=== PATIENT | female | born 1990 | race Caucasian/White ===

== ENCOUNTER 2017-02-16 09:29 | Emergency (ER) | payer OTHER ==
[2017-02-16 09:34] VITALS: BP 113/67; PULSE 86; TEMP 97.7; BMI 30.2
--- NOTE | 2017-02-16 11:09 | PDOC ---
History of Present Illness - General Chief Complaint: Injury Stated Complaint: FALL/ BACK PAIN Time Seen by Provider: 02/16/17 11:01 History Source: Patient Exam Limitations: No Limitations - History of Present Illness Initial Comments: 02/16/17 11:07 26 yr female with c/o back pain after a fall 2 days ago. Pt states she slipped on the step and hit her back. no head trauma no LOC. Pt did not take anything of for pain. 02/16/17 11:09 Pain Location: reports: back Past History - Past Medical History Allergies/Adverse Reactions: Allergies Allergy/AdvReac Type Severity Reaction Status Date / Time No Known Allergies Allergy Verified 02/16/17 09:31 Home Medications: Ambulatory Orders Cyclobenzaprine HCl [Flexeril 10 mg] 5 mg PO TID PRN #15 tablet 02/16/17 Naproxen [Naprosyn -] 500 mg PO BID PRN #21 tablet 02/16/17 Other medical history: PT DENIES MEDICAL HX - Surgical History Abdominal Surgery: No - Reproductive History (#): 2 Para: 1 Cervical CA: No Dysfunctional Uterine Bleeding: No Ectopic : No Endometrial CA: No Polycystic Ovaries: No Therapeutic (s) & number: No Tubal Ligation: No - Immunization History Immunization Up to Date: Yes - Psycho/Social/Smoking Cessation Hx Anxiety: No Suicidal Ideation: No Smoking Status: No Smoking History: Never smoked Have you smoked in the past 12 months: No Number of Cigarettes Smoked Daily: 0 Cigars Per Day: 0 Hx Alcohol Use: No Drug/Substance Use Hx: No Substance Use Type: None *Physical Exam - Vital Signs Last Vital Signs Temp Pulse Resp BP Pulse Ox 97.7 F 86 16 113/67 97 02/16/17 09:31 02/16/17 09:31 02/16/17 09:31 02/16/17 09:31 02/16/17 09:31 - Physical Exam General Appearance: Yes: Nourished, Appropriately Dressed HEENT: positive: EOMI, GUADALUPE, Normal ENT Inspection, TMs Normal, Pharynx Normal Neck: positive: Supple. negative: Tender Respiratory/Chest: positive: Lungs Clear, Normal Breath Sounds. negative: Chest Tender Cardiovascular: positive: Regular Rhythm, Regular Rate Gastrointestinal/Abdominal: positive: Normal Bowel Sounds, Soft. negative: Tender Lymphatic: negative: Adenopathy Musculoskeletal: positive: Normal Inspection, Decreased Range of Motion, Muscle Spasm (left lumbar paraspinal soft tissue TTP ). negative: CVA Tenderness, CVA Tenderness (R), CVA Tenderness (L), Vertebral Tenderness Extremity: positive: Normal Capillary Refill, Normal Inspection, Normal Range of Motion. negative: Tender Integumentary: positive: Normal Color, Dry, Warm Neurologic: positive: Fully Oriented, Alert, Normal Mood/Affect, Normal Response , Motor Strength 5/5 Medical Decision Making - Medical Decision Making 02/16/17 13:42 cc: low back pain after fall 2 days ago no head trauma skin intact no bruising ttp left lower back area and lateral neck left side will check urine, urine motrin for pain *DC/Admit/Observation/Transfer Diagnosis at time of Disposition: Contusion Qualifiers: Encounter type: initial encounter Contusion area: lower back Qualified Code(s) : S30.0XXA - Contusion of lower back and pelvis, initial encounter - Discharge Dispostion Disposition: HOME Condition at time of disposition: Good - Prescriptions Prescriptions: Cyclobenzaprine HCl [Flexeril 10 mg] 5 mg PO TID PRN #15 tablet PRN Reason: Muscle Spasms Naproxen [Naprosyn -] 500 mg PO BID PRN #21 tablet PRN Reason: Back Pain - Patient Instructions Additional Instructions: take the prescribed muscle relaxants and pain medication as prescribed DO NOT DRIVE, OPERATE MACHINERY OR DRINK ALCOHOL CHILE TAKING FLEXERIL Return to ER for any worsening pain
[2017-02-16] MEDS ORDERED: IBUPROFEN 400 MG TABLET (FP) PO ONE ×2 (11:33→11:39)
[2017-02-16 12:53] LABS: URINE APPEARANCE CLEAR; URINE BILIRUBIN NEGATIVE (NEGATIVE); URINE BLOOD NEGATIVE (NEGATIVE); URINE COLOR YELLOW; URINE GLUCOSE (UA) NEGATIVE (NEGATIVE); URINE KETONE NEGATIVE (NEGATIVE); URINE NITRITE NEGATIVE (NEGATIVE); URINE PROTEIN NEGATIVE (NEGATIVE); URINE UROBILINOGEN NEGATIVE E.U./dl (0.2-1.0)
[2017-02-16 12:58] LABS: URINE LEUK ESTERASE TRACE (NEGATIVE)
[2017-02-16 13:24] LABS: URINE MUCUS RARE; URINE RBC 1 /hpf (0-3); URINE WBC 2 /hpf (3-5)
== END 2017-02-16 13:50 | disposition home or self-care (01) ==
LOC: JERFT 09:29
DX: S30.0XXA Contusion of lower back and pelvis, initial encounter (principal); W10.8XXA Fall (on) (from) other stairs and steps, initial encounter; Y93.89 Activity, other specified; Y92.89 Other specified places as the place of occurrence of the external cause
CPT/HCPCS: 72050-TC; 72070-TC; 81003; 81015; 84703; 99281-25

== ENCOUNTER 2017-12-16 17:21 | Emergency (ER) | payer OTHER ==
[2017-12-16] MEDS ORDERED: ACETAMINOPHEN 500 MG TABLET (FP) PO ONE (18:03)
--- NOTE | 2017-12-16 18:06 | PDOC ---
Rapid Medical Evaluation Time Seen by Provider: 12/16/17 18:02 Medical Evaluation: Allergies Allergy/AdvReac Type Severity Reaction Status Date / Time No Known Allergies Allergy Verified 02/16/17 09:31 12/16/17 18:02 I have performed a brief in-person evaluation of this patient. The patient presents with a chief complaint of: fever, sore throat, bodyaches Pertinent physical exam findings: HEENT: No erythema or exudates noted. No cervical lymphadenopathy. PULM: Lungs CTAB I have ordered the following: influenza, rapid strep, tylenol The patient will proceed to the ED for further evaluation. Discharge Disposition - Diagnosis Fever - Referrals - Patient Instructions - Post Discharge Activity
[2017-12-16 18:08] VITALS: BP 132/71; BMI 31.1
--- NOTE | 2017-12-16 19:32 | PDOC ---
History of Present Illness - General Chief Complaint: Cold Symptoms Stated Complaint: COUGHING Time Seen by Provider: 12/16/17 18:02 History Source: Patient Exam Limitations: No Limitations - History of Present Illness Initial Comments: 12/16/17 19:34 Patient here with complaints of acute onset last night of fevers, chills, headache and body aches, sore throat moist nonproductive cough earache and runny nose. Timing/Duration: reports: getting worse Severity: reports: moderate Associated Symptoms: reports: chest pain/soreness, cough, earache, facial pain, fever/chills, muscle aches Past History - Travel Traveled outside of the country in the last 30 days: No Close contact w/someone who was outside of country & ill: No - Past Medical History Allergies/Adverse Reactions: Allergies Allergy/AdvReac Type Severity Reaction Status Date / Time No Known Allergies Allergy Verified 12/16/17 18:08 Home Medications: Ambulatory Orders Ibuprofen 400 mg PO Q6H PRN #30 tablet 12/16/17 Oseltamivir Phosphate [Tamiflu -] 75 mg PO BID #10 capsule 12/16/17 CVA: No COPD: No - Surgical History Abdominal Surgery: No - Reproductive History (#): 2 Para: 1 Cervical CA: No Dysfunctional Uterine Bleeding: No Ectopic : No Endometrial CA: No Polycystic Ovaries: No Therapeutic (s) & number: No Tubal Ligation: No - Immunization History Immunization Up to Date: Yes - Suicide/Smoking/Psychosocial Hx Smoking Status: No Smoking History: Never smoked Have you smoked in the past 12 months: No Number of Cigarettes Smoked Daily: 0 Cigars Per Day: 0 Hx Alcohol Use: No Drug/Substance Use Hx: No Substance Use Type: None Review of Systems - Review of Systems Able to Perform ROS?: Yes Is the patient limited Luxembourgish proficient: Yes Constitutional: Yes: Symptoms Reported, See HPI, Fever, Malaise HEENTM: Yes: Symptoms Reported, Nose Congestion, Throat Swelling Respiratory: Yes: Symptoms reported, See HPI, Cough Musculoskeletal: Yes: Symptoms Reported, See HPI, Muscle Pain, Muscle Weakness Integumentary: No: Symptoms Reported All Other Systems: Reviewed and Negative *Physical Exam - Vital Signs Last Vital Signs Temp Pulse Resp BP Pulse Ox 102.8 F H 156 H 20 132/71 99 12/16/17 18:05 12/16/17 18:05 12/16/17 18:05 12/16/17 18:05 12/16/17 18:05 - Physical Exam General Appearance: Yes: Appropriately Dressed, Apparent Distress, Mild Distress HEENT: positive: GUADALUPE, Normal ENT Inspection, Rhinorrhea, Sinus Tenderness. negative: TMs Normal (unable to visualize TMs due to ceruminosis), Pharynx Normal (erythema) Neck: positive: Supple, Lymphadenopathy (R), Lymphadenopathy (L). negative: Tender Respiratory/Chest: positive: Lungs Clear, Normal Breath Sounds (but coarse inspiratory and expiratory breath sounds, no wheezing or retractions noted), Wheezing Gastrointestinal/Abdominal: positive: Normal Bowel Sounds, Soft. negative: Tender Musculoskeletal: positive: Normal Inspection Extremity: positive: Normal Capillary Refill, Normal Inspection, Normal Range of Motion Integumentary: positive: Normal Color, Dry, Warm, Pale Neurologic: positive: ip network architect II-XII NML intact, Fully Oriented, Alert, Normal Mood/ Affect, Normal Response, Motor Strength 04/03 ED Treatment Course - Medications Given in the ED: ED Medications Discontinued Medications Generic Name Dose Route Start Last Admin Trade Name Cricketq PRN Reason Stop Dose Admin Acetaminophen 1,000 mg 12/16/17 18:03 12/16/17 18:08 Tylenol - PO 12/16/17 18:04 1,000 mg ONCE ONE Administration Progress Note - Progress Note Progress Note: Upper respiratory infection, probable influenza. We'll treat with Tamiflu *DC/Admit/Observation/Transfer Diagnosis at time of Disposition: Influenzal acute upper respiratory infection - Discharge Dispostion Disposition: HOME Condition at time of disposition: Stable Admit: No - Referrals - Patient Instructions Printed Discharge Instructions: DI for Viral Upper Respiratory Infection -- Adult Additional Instructions: Rest, drink lots of fluids: Teas, water, soups, Pedialyte Saltwater gargles Steamy showers/seem to face break up mucus Old-fashioned treatments help! Avoid contact with others until fevers and cough resolved as this is very contagious Lots of handwashing and good hygiene Continue [id number] medications for symptomatic relief Tylenol or Motrin for fever and pain Take all of Tamiflu as directed: 1 tab every 12 hours for 5 days Followup with private physician in one to 2 days as needed or if worsening Return to emergency department for worsened symptoms, fevers, dehydration Influenza takes between 5 and 7 days for resolution To not participate in any activity, work, or school until fevers and cough are gone for at least one day - Post Discharge Activity
[2017-12-16 19:39] VITALS: PULSE 90; TEMP 99.5
--- NOTE | 2017-12-16 20:01 | PDOC ---
Patient Follow-up (Call Back) - Post ED Follow - Up Condition at time of discharge: Stable Disposition at time of original discharge: HOME Reason for Call Back: Abnwl. Microbiology (+ flu and group a beta hemolytic strep. Patient was discharged prior to results but was given Tamiflu. Contacted patient and made her aware of results. Prescription for amoxicillin, sent to pharmacy)
== END 2017-12-16 19:49 | disposition home or self-care (01) ==
LOC: JERFT 17:21
DX: J09.X2 Influenza due to identified novel influenza A virus with other respiratory manifestations (principal); J02.0 Streptococcal pharyngitis; B95.0 Streptococcus, group A, as the cause of diseases classified elsewhere
CPT/HCPCS: 87070; 87430; 87804; 99281-25

== ENCOUNTER 2018-08-02 11:17 | Emergency (ER) | payer OTHER ==
[2018-08-02 11:26] VITALS: BMI 30.2
--- NOTE | 2018-08-02 11:27 | PDOC ---
Rapid Medical Evaluation Chief Complaint: Pain Medical Evaluation: Allergies Allergy/AdvReac Type Severity Reaction Status Date / Time No Known Allergies Allergy Verified 08/02/18 11:22 Vital Signs Temp Pulse Resp BP Pulse Ox 99.0 F 100 H 18 115/69 100 08/02/18 11:22 08/02/18 11:22 08/02/18 11:22 08/02/18 11:22 08/02/18 11:22 08/02/18 11:27 Patient stating she has not felt the baby move for 2 days. Patient is currently 20 weeks followed by woman to woman. Patient denies abdominal pain, vaginal discharge or vaginal bleeding. Patient does state mild low back pain just as an aching sensation. Patient has no other complaints at this time. Patient will be sent to L&D for assessment Discharge Disposition - Referrals Referrals: Dragan Saavedra MD [Primary Care Provider] - - Patient Instructions - Post Discharge Activity
[2018-08-02 12:46] VITALS: BP 113/76; PULSE 91; TEMP 97.6
== END 2018-08-02 13:10 | disposition home or self-care (01) ==
LOC: JER 11:17
DX: O26.892 Other specified pregnancy related conditions, second trimester (principal); M54.5 Low back pain; O36.8130 Decreased fetal movements, third trimester, not applicable or unspecified; Z3A.20 20 weeks gestation of pregnancy
CPT/HCPCS: 99281-25

== ENCOUNTER 2018-12-14 09:35 | Inpatient (IN) | payer OTHER ==
[2018-12-14] MEDS ORDERED: ELECTROLYTE-148 SOLN 1,000 ML IV SCH (12:30)
[2018-12-14] MEDS ORDERED: ELECTROLYTE-148 SOLN 500 ML IV ONE (12:30)
[2018-12-14] MEDS ORDERED: CITRIC ACID/SODIUM CITRATE 30 ML UNIT-DOSE CUP PO ONE (12:30)
--- NOTE | 2018-12-14 12:30 | HP ---
Past Medical History - Admission History of Present Illness: 28 y/o with h/o c section X 2 here with c/o leaking fluid and pauly. Pt has c section scheduled for 12/17. +FM, uncomplicated. Has h/o fatty liver, AST/ALT mildly elevated on last check, no signs/sx HELLP or Pre Eclampsia. History Source: Patient, Medical Record Limitations to Obtaining History: No Limitations - Past Medical History Cardiovascular: No: HTN Pulmonary: No: Asthma, COPD Gastrointestinal: Yes: Other (fatty liver). No: GERD ...: 3 ...Para: 2 ...Term: 2 ...: 0 ...Spon : 0 ...Induced : 0 ...LMP: 12/06/17 ...EDC by Sono: 12/23/18 Heme/Onc: No: Thrombocytopenia Infectious Disease: No: STD's Psych: No: Bipolar, Depression - Past Surgical History Past Surgical History: Yes: Hx Myomectomy: No Hx Transabdominal Cerclage: No - Smoking History Smoking history: Never smoked Have you smoked in the past 12 months: No Aproximately how many cigarettes per day: 0 - Alcohol/Substance Use Hx Alcohol Use: No History of Substance Use: reports: None - Social History Usual Living Arrangement: Yes: With Spouse ADL: Independent History of Recent Travel: No Home Medications - Allergies Allergies/Adverse Reactions: Allergies Allergy/AdvReac Type Severity Reaction Status Date / Time contrast dye Allergy Severe Swelling Uncoded 12/14/18 10:50 - Home Medications Home Medications: Ambulatory Orders Vit 108/Iron/Folic AC [ One Tablet] 1 each PO DAILY 12/14/18 Review of Systems - Review of Systems Constitutional: reports: No Symptoms Eyes: reports: No Symptoms HENT: reports: No Symptoms Neck: reports: No Symptoms Cardiovascular: reports: No Symptoms Respiratory: reports: No Symptoms Gastrointestinal: reports: No Symptoms Genitourinary: reports: No Symptoms Breasts: reports: No Symptoms Reported Musculoskeletal: reports: No Symptoms Integumentary: reports: No Symptoms Neurological: reports: No Symptoms Endocrine: reports: No Symptoms Hematology/Lymphatic: reports: No Symptoms Psychiatric: reports: No Symptoms Physical Exam - Maternity Vital Signs: Vital Signs Temperature 98.0 F 12/14/18 10:45 Pulse Rate 91 H 12/14/18 10:45 Respiratory Rate 18 12/14/18 10:45 Blood Pressure 113/73 12/14/18 10:45 O2 Sat by Pulse Oximetry (%) Constitutional: Yes: Well Nourished, No Distress, Calm Eyes: Yes: Conjunctiva Clear, EOM Intact HENT: Yes: Atraumatic, Normocephalic Neck: Yes: Supple, Trachea Midline Cardiovascular: Yes: Regular Rate and Rhythm Lungs: Clear to auscultation Breast(s): Yes: WNL - Abdominal Exam/OB Fundal Height: 39 Number of Fetuses: Single Presentation: Vertex Contractions: Yes Regularity: Irregular Intensity: Mild/Mod Category: I Accelerations: Uniform Decelerations: None - Vaginal Exam/OB Dilatation (cm): 4 Effacement (%): 70 Amniotic Membrane Status: Intact Presentation: Vertex/Position Station: -2 - Physical Exam Psychiatric: Yes: Alert, Oriented Hemorrhage Risk Assessment - Risk Factors Medium Risk Factors: Yes: Prior , uterine surgery,or multiple laparotomies Risk Score: 1 Risk Level: Medium Risk Problem List - Problems (1) Fatty liver Code(s): K76.0 - FATTY (CHANGE OF) LIVER, NOT ELSEWHERE CLASSIFIED (2) Fatty liver disease, nonalcoholic Code(s): K76.0 - FATTY (CHANGE OF) LIVER, NOT ELSEWHERE CLASSIFIED (3) Active labor at term Code(s): FYD6963 - (4) History of delivery Code(s): Z98.891 - HISTORY OF UTERINE SCAR FROM PREVIOUS SURGERY Assessment/Plan Pt with contractions, 4cm dilated, in early labor with h/o prior c section X 2 plan for repeat c section due to h/o fatty liver, need coags before can start c section, awaiting labs now NPO gonzalez catheter placed anesthesia/nursings/nursery aware
[2018-12-14 12:34] LABS: BASO % 0.4 % (0-2.0); EOS % 1.1 % (0-4.5); HEMATOCRIT 32.2 % (32.4-45.2); HEMOGLOBIN 11.1 GM/dL (10.7-15.3); LYMPH % 21.6 % (8-40); MCH 31.8 pg (25.7-33.7); MCHC 34.3 g/dl (32.0-36.0); MEAN CELL VOLUME 92.8 fl (80-96); MEAN PLT VOLUME 8.6 fl (7.5-11.1); MONO % 7.8 % (3.8-10.2); NEUT % 69.1 % (42.8-82.8); PLATELET COUNT 383 K/MM3 (134-434); RBC 3.47 M/mm3 (3.60-5.2); RDW 14.1 % (11.6-15.6); WHITE BLOOD COUNT 9.1 K/mm3 (4.0-10.0)
[2018-12-14 12:40] LABS: INR 0.96 (0.83-1.09); PROTHROMBIN TIME (PATIENT) 11.3 SEC (9.7-13.0)
[2018-12-14 12:58] LABS: ANION GAP 9 MMOL/L (8-16); BLOOD UREA NITROGEN 11 mg/dL (7-18); CALCIUM 8.5 mg/dL (8.5-10.1); CHLORIDE 107 mmol/L (98-107); CO2 23 mmol/L (21-32); CREATININE 0.6 mg/dL (0.55-1.3); GLUCOSE,RANDOM 67 mg/dL (74-106); POTASSIUM 4.3 mmol/L (3.5-5.1); SODIUM 138 mmol/L (136-145)
[2018-12-14 13:12] VITALS: BMI 33.8
[2018-12-14] MEDS ORDERED: OXYTOCIN 20 UNITS in 0.9% NS 40 UNIT/2,000 ML INFUS.BAG IV ONE (15:24)
[2018-12-14] MEDS ORDERED: morphine SULFATE/Preservative Free 0.5 MG/ML (1cc Syringe) ONE (16:28)
[2018-12-14] MEDS ORDERED: METHYLERGONOVINE MALEATE 0.2 MG/1 ML AMP IM PRN (16:38)
[2018-12-14] MEDS ORDERED: IBUPROFEN 600 MG TABLET (FP) PO PRN (16:38)
[2018-12-14] MEDS ORDERED: ONDANSETRON 4 MG/2 ML VIAL IVPUSH PRN (16:44)
[2018-12-14] MEDS ORDERED: OXYTOCIN 20 UNITS in 0.9% NS 20 UNIT/1,000 ML INFUS.BAG IV ONE (18:43)
[2018-12-14] MEDS: OXYTOCIN 20 UNITS in 0.9% NS 20 UNIT/1,000 ML INFUS.BAG IV SCH (18:45)
[2018-12-14] MEDS ORDERED: TUBERCULIN PPD 5 TU/0.1ML SYRINGE (IN PATIENT USE ONLY) ID ONE (19:45)
--- NOTE | 2018-12-14 20:10 | OP ---
Operative Note - Note: Operative Date: 12/14/18 Pre-Operative Diagnosis: prior section x 2, in labor Operation: repeat low transverse section Findings: normal b/l tubes and ovaries live male Post-Operative Diagnosis: Same as Pre-op Surgeon: Matilde Scruggs Automobile Mechanic Helper: Jignesh Page Anesthesiologist/SERVICE STATION OPERATOR: Renzo Niño Anesthesia: Spinal Specimens Removed: placenta Estimated Blood Loss (mls): 600 Operative Report Dictated: Yes
[2018-12-14] MEDS: IBUPROFEN 800 MG/8 ML IJ IVPB PRN (20:37)
[2018-12-15] MEDS: OXYTOCIN 20 UNITS in 0.9% NS 20 UNIT/1,000 ML INFUS.BAG IV SCH (04:00)
[2018-12-15] MEDS: IBUPROFEN 800 MG/8 ML IJ IVPB PRN (04:55)
--- NOTE | 2018-12-15 05:55 | PN ---
Progress Note (SOAP) - Subjective Chief Complaint: Pt doing well - Current Medications Current Medications: Active Medications Acetaminophen (Tylenol -) 650 mg PO Q4H PRN PRN Reason: PAIN LEVEL 1-5 Bisacodyl (Dulcolax Suppository -) 10 mg RC PRN PRN PRN Reason: CONSTIPATION Diphenhydramine HCl (Benadryl Injection -) 25 mg IVPUSH Q4H PRN PRN Reason: Pruritis Oxytocin/Sodium Chloride (Normal Saline+20 Units Oxytocin -) 20 unit in 1,000 mls @ 125 mls/hr IV ASDIR ALETHA Last Admin: 12/15/18 04:00 Dose: 125 mls/hr Ibuprofen (Motrin -) 600 mg PO Q4H PRN PRN Reason: PAIN LEVEL 1-5 Ibuprofen (Caldolor Injection -) 600 mg IVPB Q8H PRN PRN Reason: FEVER Last Admin: 12/15/18 04:55 Dose: 600 mg Methylergonovine Maleate (Methergine Injection -) 0.2 mg IM Q4H PRN PRN Reason: Excessive Bleeding (L&D) Ondansetron HCl (Zofran Injection) 4 mg IVPUSH Q4H PRN PRN Reason: NAUSEA Oxycodone HCl (Roxicodone -) 5 mg PO Q4H PRN PRN Reason: PAIN LEVEL 4 - 6 Oxycodone HCl (Roxicodone -) 10 mg PO Q4H PRN PRN Reason: PAIN LEVEL 7 - 10 Multivit/Folic Acid/Iron ( Vitamins (Sjr) -) 1 tab PO DAILY [facility] Simethicone (Mylicon -) 80 mg PO Q4H PRN PRN Reason: GAS - Objective Vital Signs: Vital Signs Temperature 99.3 F 12/15/18 02:00 Pulse Rate 100 H 12/15/18 02:00 Respiratory Rate 18 12/15/18 05:50 Blood Pressure 106/52 L 12/15/18 02:00 O2 Sat by Pulse Oximetry (%) 100 12/14/18 19:00 Constitutional: Yes: Well Nourished, No Distress Cardiovascular: Yes: WNL Respiratory: Yes: WNL, Regular, CTA Bilaterally ....Post : Yes: Uterus firm, Uterus non-tender Breast(s): Yes: WNL Musculoskeletal: Yes: WNL Extremities: Yes: WNL Wound/Incision: Yes: Dressing Dry and Intact Neurological: Yes: WNL, Alert, Oriented Labs Lab Results: CBC, BMP 12/14/18 12:00 12/14/18 12:00 Assessment/Plan SP repeat CS POD1 Anemia Plab Continue present management
[2018-12-15 06:02] LABS: BASO % 0.4 % (0-2.0); EOS % 0.4 % (0-4.5); HEMATOCRIT 29.2 % (32.4-45.2); LYMPH % 15.7 % (8-40); MCH 32.3 pg (25.7-33.7); MCHC 34.4 g/dl (32.0-36.0); MEAN CELL VOLUME 93.8 fl (80-96); MEAN PLT VOLUME 7.8 fl (7.5-11.1); NEUT % 75.5 % (42.8-82.8); PLATELET COUNT 331 K/MM3 (134-434); RBC 3.11 M/mm3 (3.60-5.2); RDW 14.1 % (11.6-15.6); WHITE BLOOD COUNT 9.6 K/mm3 (4.0-10.0)
[2018-12-15] MEDS: PRENATAL VITAMINS W/ FOLIC ACID TABLET (FP) PO SCH (09:28)
--- NOTE | 2018-12-15 10:05 | PN ---
Progress Note (short form) - Note Progress Note: Post op day#1.S/P C Section under spinal anesthesia with duramorph uneventful.Patient stable and c/o some pain for which she is on medication.No any anesthesia related problem.Patient DC from the anesthesia care.
[2018-12-15] MEDS: oxyCODONE HCL 5 MG TABLET PO PRN ×4 (10:20→22:49)
[2018-12-15] MEDS: ACETAMINOPHEN 325 MG TABLET (FP) PO PRN ×3 (10:22→19:01)
[2018-12-15] MEDS: SIMETHICONE 80 MG TAB.CHEW (FP) PO PRN ×4 (10:22→22:49)
[2018-12-15] MEDS ORDERED: BISACODYL 10 MG SUPP.RECT RC PRN (16:38)
[2018-12-15] MEDS: IBUPROFEN 600 MG TABLET (FP) PO PRN (22:50)
--- NOTE | 2018-12-16 06:28 | PN ---
Progress Note (SOAP) - Subjective Chief Complaint: Pt doing well - Current Medications Current Medications: Active Medications Acetaminophen (Tylenol -) 650 mg PO Q4H PRN PRN Reason: PAIN LEVEL 1-5 Last Admin: 12/15/18 19:01 Dose: 650 mg Bisacodyl (Dulcolax Suppository -) 10 mg RC PRN PRN PRN Reason: CONSTIPATION Diphenhydramine HCl (Benadryl Injection -) 25 mg IVPUSH Q4H PRN PRN Reason: Pruritis Oxytocin/Sodium Chloride (Normal Saline+20 Units Oxytocin -) 20 unit in 1,000 mls @ 125 mls/hr IV ASDIR ALETHA Last Admin: 12/15/18 04:00 Dose: 125 mls/hr Ibuprofen (Motrin -) 600 mg PO Q4H PRN PRN Reason: PAIN LEVEL 1-5 Last Admin: 12/15/18 22:50 Dose: 600 mg Ibuprofen (Caldolor Injection -) 600 mg IVPB Q8H PRN PRN Reason: FEVER Last Admin: 12/15/18 04:55 Dose: 600 mg Methylergonovine Maleate (Methergine Injection -) 0.2 mg IM Q4H PRN PRN Reason: Excessive Bleeding (L&D) Ondansetron HCl (Zofran Injection) 4 mg IVPUSH Q4H PRN PRN Reason: NAUSEA Oxycodone HCl (Roxicodone -) 5 mg PO Q4H PRN PRN Reason: PAIN LEVEL 4 - 6 Last Admin: 12/15/18 22:49 Dose: 5 mg Oxycodone HCl (Roxicodone -) 10 mg PO Q4H PRN PRN Reason: PAIN LEVEL 7 - 10 Last Admin: 12/15/18 19:00 Dose: 10 mg Multivit/Folic Acid/Iron ( Vitamins (Sjr) -) 1 tab PO DAILY ALETHA Last Admin: 12/15/18 09:28 Dose: Not Given Simethicone (Mylicon -) 80 mg PO Q4H PRN PRN Reason: GAS Last Admin: 12/15/18 22:49 Dose: 80 mg - Objective Vital Signs: Vital Signs Temperature 99.3 F 12/15/18 22:00 Pulse Rate 110 H 12/15/18 22:00 Respiratory Rate 18 12/15/18 22:00 Blood Pressure 107/68 12/15/18 22:00 O2 Sat by Pulse Oximetry (%) 100 12/14/18 19:00 Constitutional: Yes: Well Nourished, No Distress Neck: Yes: WNL Cardiovascular: Yes: WNL Gastrointestinal: Yes: WNL, Soft ....Post : Yes: Uterus firm, Uterus non-tender Breast(s): Yes: WNL Musculoskeletal: Yes: WNL Extremities: Yes: WNL Wound/Incision: Yes: Dressing Dry and Intact Neurological: Yes: WNL, Alert, Oriented Labs Lab Results: CBC, BMP 12/15/18 05:50 12/14/18 12:00 Assessment/Plan SP repeat CS POD2 Anemia Plab Continue present management
[2018-12-16] MEDS: oxyCODONE HCL 5 MG TABLET PO PRN ×4 (07:59→21:13)
[2018-12-16] MEDS: ACETAMINOPHEN 325 MG TABLET (FP) PO PRN ×4 (08:00→21:14)
[2018-12-16] MEDS: SIMETHICONE 80 MG TAB.CHEW (FP) PO PRN ×3 (08:01→21:13)
[2018-12-16] MEDS: IBUPROFEN 600 MG TABLET (FP) PO PRN (08:01)
--- NOTE | 2018-12-16 09:27 | OP ---
DATE OF OPERATION: 12/14/2018 PREOPERATIVE DIAGNOSIS: Prior section x2, at 38 weeks in labor. POSTOPERATIVE DIAGNOSIS: Prior section x2, at 38 weeks in labor. PROCEDURE: Repeat low transverse section. SURGEON: Matilde Scruggs DO SCRATCHER: NATALIO Burk ANESTHESIA: Spinal by Renzo Niño MD. ESTIMATED BLOOD LOSS: 600 mL COMPLICATIONS: None. SPECIMENS REMOVED: Placenta. FINDINGS: Normal bilateral tubes and ovaries. COUNT: Sponge, needle, and instrument count correct. DISPOSITION: Stable to PACU. BRIEF HISTORY AND PROCEDURE: Patient is a 28-year-old female who arrived to Labor and Delivery with complaints of painful contractions, was found to be 4 cm dilated upon admission, when prior in the office she was measuring 2-3 cm, and she was having regular contractions. At this point, the patient was diagnosed with labor, and due to her 2 prior deliveries was consented on a repeat section. The patient was admitted to the hospital, and after meeting with Anesthesia, was then taken back to the operating room and given spinal anesthesia, placed in dorsal supine position. A Agarwal catheter was placed under sterile conditions, and a hard timeout was performed. She was prepped and draped in the usual sterile fashion. A Pfannenstiel skin incision was created in the skin with a scalpel and carried to the underlying layer of rectus fascia sharply. The fascia was incised on either side of midline, and the fascial incision was carried in a superolateral direction sharply. The fascia was tented upwards and dissected off the underlying layer of rectus muscle sharply. The rectus muscle was retracted laterally, and the peritoneum was entered sharply to allow for adequate room for delivery and dissected down. A bladder blade was inserted. A transverse incision was created in the lower uterine segment with a knife, and the incision was extended in a superolateral direction bluntly. The infant was then delivered from the left occiput anterior position without difficulty. Bilateral shoulders and the remainder of the delivered with ease. The cord was clamped twice and cut in between. The infant was taken over to the warmer to be assessed by the soup person who was present for the entire delivery. A 3-vessel cord was noted. The placenta was then manually extracted and sent to Pathology for evaluation. The uterus was exteriorized from the abdomen, inspected, and cleared of all amniotic membrane and placental tissue with a dry lap sponge. The hysterotomy was reapproximated using 1 Vicryl in a running locked fashion and a second layer using 0 Biosyn in a running fashion. Excellent hemostasis was achieved. Bilateral tubes and ovaries were noted to be normal. The posterior cul-de-sac was suctioned. The uterus was placed back in the abdomen. Bilateral gutters were inspected and cleared of all blood clot and debris. Hysterotomy was again examined and noted to be hemostatic. The peritoneum was reapproximated using 2-0 chromic in a running fashion. The musculature was reapproximated interrupted sutures using 2-0 chromic and 0 Biosyn. The fascia was reapproximated using 1 Vicryl in a running fashion. The subcutaneous tissue was irrigated and reapproximated using 1 Vicryl in a running fashion, and the skin was reapproximated in subcuticular fashion using 1 Vicryl suture. The patient tolerated the procedure well, was recovering in stable condition in the PACU after the procedure. MATILDE SCRUGGS DO /[id number]
[2018-12-16] MEDS: PRENATAL VITAMINS W/ FOLIC ACID TABLET (FP) PO SCH (09:39)
[2018-12-17] MEDS: ACETAMINOPHEN 325 MG TABLET (FP) PO PRN ×5 (00:59→23:01)
[2018-12-17] MEDS: oxyCODONE HCL 5 MG TABLET PO PRN ×5 (01:00→23:01)
[2018-12-17] MEDS: SIMETHICONE 80 MG TAB.CHEW (FP) PO PRN ×4 (01:01→18:38)
[2018-12-17 07:50] LABS: BASO % 0.6 % (0-2.0); EOS % 3.1 % (0-4.5); HEMOGLOBIN 10.9 GM/dL (10.7-15.3); LYMPH % 20.2 % (8-40); MCH 31.9 pg (25.7-33.7); MCHC 34.2 g/dl (32.0-36.0); MEAN CELL VOLUME 93.4 fl (80-96); MEAN PLT VOLUME 7.7 fl (7.5-11.1); MONO % 5.6 % (3.8-10.2); NEUT % 70.5 % (42.8-82.8); PLATELET COUNT 366 K/MM3 (134-434); RBC 3.43 M/mm3 (3.60-5.2); WHITE BLOOD COUNT 7.9 K/mm3 (4.0-10.0)
[2018-12-17] MEDS: PRENATAL VITAMINS W/ FOLIC ACID TABLET (FP) PO SCH (10:00)
[2018-12-17] MEDS: OXYTOCIN 20 UNITS in 0.9% NS 20 UNIT/1,000 ML INFUS.BAG IV SCH (23:21)
[2018-12-18] MEDS: oxyCODONE HCL 5 MG TABLET PO PRN (08:25)
[2018-12-18] MEDS: SIMETHICONE 80 MG TAB.CHEW (FP) PO PRN (08:25)
[2018-12-18] MEDS: ACETAMINOPHEN 325 MG TABLET (FP) PO PRN (08:26)
[2018-12-18] MEDS: PRENATAL VITAMINS W/ FOLIC ACID TABLET (FP) PO SCH (10:04)
[2018-12-18 10:33] VITALS: BP 110/72; PULSE 88; TEMP 99.4
--- NOTE | 2018-12-18 10:52 | DS ---
Physical Exam-ROD HANGER Vital Signs: Vital Signs Temperature 99.4 F 12/18/18 10:00 Pulse Rate 88 12/18/18 10:00 Respiratory Rate 20 12/18/18 10:00 Blood Pressure 110/72 12/18/18 10:00 O2 Sat by Pulse Oximetry (%) 100 12/14/18 19:00 Labs: CBC, BMP 12/17/18 06:30 12/14/18 12:00 Delivery - Delivery Type of Anesthesia: Spinal Episiotomy/Laceration: None EBL (cc): 600 Delivery, Single - Stages of Labor Date 1st Stage Initiatied: 12/14/18 Date of Delivery: 12/14/18 Time of Delivery: 16:49 Time Placenta Delivered: 16:50 - Condition of Store Receiver/Biomedical Scientist Present: Yes Name: Kash Sethi Gender: Male Weight: 7 lb 7 oz Position: Left, OA Total Hours ROM (Hrs/Mins): 0/2 - 1 Minute Total Score: 8 5 Minutes Total Score: 9 - [place] Feeding Plan Initial Plan: Elected not to breastfeed exclusively throughout hospitalization Discharge Summary Reason For Visit: Current Active Problems Active labor at term (Acute) Fatty liver (Acute) Fatty liver disease, nonalcoholic (Acute) History of delivery (Acute) - Instructions Referrals: Matilde Scruggs DO [Staff Physician] - - Home Medications Comprehensive Discharge Medication List: Ambulatory Orders Vit 108/Iron/Folic AC [ One Tablet] 1 each PO DAILY 12/14/18
--- NOTE | 2018-12-24 20:35 | PATH ---
Surgical Pathology Report Patient Name: PARAG MAN Med. Rec. #: [id number] /Age/Gender: 1990 (Age: 28) / F Account: [id number] Location: [facility] OBS/REAL ESTATE REPRESENTATIVE Taken: 12/14/2018 Received: 12/15/2018 Reported: 12/24/2018 Physicians: Matilde Scruggs M.D. Specimen(s) Received PLACENTA Clinical History , 38.5 weeks, previous in labor Final Diagnosis PLACENTA, SECTION: 457 G THIRD TRIMESTER PLACENTA WITH TRIVASCULAR UMBILICAL CORD AND UNREMARKABLE PLACENTAL MEMBRANES. Electronically Signed Elyse Saldaña M.D. Gross Description The specimen is received fresh labeled placenta and is a 457 gram, 13.0 x 12.0 x 4.3 cm. placenta with attached membranes and umbilical cord. The attached membranes are kan, translucent with focal opacities and insert marginally. The umbilical cord measures 24 cm. in length and averages 1.5 cm. in diameter. The cord inserts eccentrically, 1.5 cm. to the nearest margin. No true knots or strictures are identified. Cut surface of the umbilical cord reveals 3 vessels. The surface is conner-blue with minimal fibrin deposition and appropriate caliber vessels. The maternal surface is red-brown with focal defects. Sectioning reveals red-brown, spongy parenchyma. No lesions are identified. Television Producer sections are submitted in three cassettes as follows: 1- membrane rolls and umbilical cord; 2-3- full thickness sections of placenta. 12/23/2018 saudi12/23/2018
== END 2018-12-18 11:40 | disposition home or self-care (01) | DRG 540 ==
LOC: JDEL 09:35 → JLDR 11:30 → J3W 19:55
PROVIDERS: ADMIT Obstetrics & Gynecology; ATTEND Obstetrics & Gynecology
PROC: 10D00Z1 Extraction of Products of Conception, Low, Open Approach (ICD-10-PCS; principal; 2018-12-14)
DX: O26.613 Liver and biliary tract disorders in pregnancy, third trimester (principal); O34.211 Maternal care for low transverse scar from previous cesarean delivery; K76.0 Fatty (change of) liver, not elsewhere classified; O99.013 Anemia complicating pregnancy, third trimester; D64.9 Anemia, unspecified; Z3A.38 38 weeks gestation of pregnancy; Z37.0 Single live birth
CPT/HCPCS: 36415; 80048; 85025; 85610; 85730; 86593; 86850; 86900; 86901; 88307-TC

== ENCOUNTER 2019-01-10 19:35 | Emergency (ER) | payer OTHER ==
[2019-01-10 20:28] VITALS: BMI 28.9
--- NOTE | 2019-01-10 20:28 | PDOC ---
Rapid Medical Evaluation Medical Evaluation: Allergies Allergy/AdvReac Type Severity Reaction Status Date / Time No Known Drug Allergies Allergy Verified 12/14/18 13:49 ibuprofen AdvReac Itching Verified 12/17/18 08:34 contrast dye Allergy Severe Swelling Uncoded 12/14/18 13:40 I have performed a brief in-person evaluation of this patient. The patient presents with a chief complaint of: c/o periumbilical abd pain from today and watery diarrhea; feeling weak; denies vomiting, fever, urinary complaints; had recent 1 month ago Pertinent physical exam findings: In NAD, mild epigastric TTP I have ordered the following: Labs The patient will proceed to the ED for further evaluation. 01/10/19 20:26
[2019-01-10] MEDS ORDERED: SODIUM CHLORIDE 1,000 ML IV STA ×2 (20:29→22:16)
[2019-01-10] MEDS ORDERED: morphine CARPU-JECT 4 MG/1 ML DISP.SYRIN IVPUSH ONE (22:16)
[2019-01-10] MEDS ORDERED: ACETAMINOPHEN 1000 MG/100 ML VIAL (NON FORMULARY) IVPB ONE (22:18)
--- NOTE | 2019-01-10 22:37 | PDOC ---
Attending Attestation - Physicial Exam PE: 01/10/19 23:13 GENERAL: Well-appearing, well-nourished. No apparent distress. HEENT: Normocephalic, atraumatic. PERRL, EOM intact. CARDIOVASCULAR: Normal S1, S2. Regular rate and rhythm. PULMONARY: Clear to auscultation bilaterally. +ABDOMEN: Well-healing scar with 1cm area of dehiscence on the left. Soft, non- distended, non-tender. EXTREMITIES: Normal ROM in all four extremities. No gross deformities. SKIN: Warm, dry. No rash NEUROLOGICAL: No focal neurological deficits. <Jenniffer Cast - Last Filed: 01/10/19 23:13> - Resident Resident Name: Jose Rogers - ED Attending Attestation I have performed the following: I have examined & evaluated the patient, The case was reviewed & discussed with the resident, I agree w/resident's findings & plan, Exceptions are as noted - HPI HPI: 01/10/19 22:43 28 female had a repeat c section 12/14/18 and now presents with abd pain and low grade temp - Medical Decision Making 01/10/19 22:46 low grade temp ,tachycardia with abd pain s/p c section 12/14/18 ,wound is healing well 01/11/19 01:37 Reviewing her labs, CBC is within normal limits Chemistries show an elevation in her LFTs. Her total bili is unremarkable UA negative. negative 01/11/19 01:38 ct scan abd/pel: no abscess, no acute abd process IMP gastroenteritis, d/c home 01/11/19 01:46 <Viktoriya Garcia - Last Filed: 01/11/19 01:46> Attestations - Attestations 01/10/19 23:14 Documentation prepared by Jenniffer Cast, acting as remote medical coder for Viktoriya Garcia MD. <Jenniffer Cast - Last Filed: 01/10/19 23:13>
[2019-01-10] MEDS ORDERED: ACETAMINOPHEN INJECTION 100 ML IVPB ONE (22:46)
[2019-01-10 23:01] LABS: BASO % 0.4 % (0-2.0); EOS % 0.8 % (0-4.5); HEMATOCRIT 40.5 % (32.4-45.2); LYMPH % 14.7 % (8-40); MCH 32.3 pg (25.7-33.7); MCHC 34.7 g/dl (32.0-36.0); MEAN PLT VOLUME 7.8 fl (7.5-11.1); MONO % 7.4 % (3.8-10.2); NEUT % 76.7 % (42.8-82.8); PLATELET COUNT 398 K/MM3 (134-434); RBC 4.35 M/mm3 (3.60-5.2); RDW 13.7 % (11.6-15.6); WHITE BLOOD COUNT 10.2 K/mm3 (4.0-10.0)
--- NOTE | 2019-01-10 23:06 | PDOC ---
History of Present Illness - General Chief Complaint: Pain Stated Complaint: NAUSEA Time Seen by Provider: 01/10/19 21:45 History Source: Patient Exam Limitations: No Limitations - History of Present Illness Initial Comments: 01/10/19 23:01 Patient is a 28F with history of x3 here today complaining of abdominal pain that onset today. Patient is also complaining of associated diarrhea, fever. Patient states that two children have been sick as well, with one having the flu and the other a viral illness. Patient's was done by Dr Arauz 1 month ago, complicated only by small wound defect. Denies vaginal pain, vaginal discharge. 6 episodes of diarrhea today. No antibiotic exposure recently. Denies dysuria. Past History - Past Medical History Allergies/Adverse Reactions: Allergies Allergy/AdvReac Type Severity Reaction Status Date / Time No Known Drug Allergies Allergy Verified 01/10/19 20:26 ibuprofen AdvReac Itching Verified 01/10/19 20:26 contrast dye Allergy Severe Swelling Uncoded 01/10/19 20:26 Home Medications: Ambulatory Orders Vit 108/Iron/Folic AC [ One Tablet] 1 each PO DAILY 12/14/18 Oxycodone HCl/Acetaminophen [Percocet 5-325 mg Tablet -] 1 tab PO Q4H PRN #20 tablet MDD 6 12/18/18 Asthma: No Cancer: No Cardiac Disorders: No CVA: No COPD: No Diabetes: No HTN: No Seizures: No Thyroid Disease: No Other medical history: fatty liver - Surgical History Abdominal Surgery: No - Reproductive History (#): 2 Para: 1 Cervical CA: No Dysfunctional Uterine Bleeding: No Ectopic : No Endometrial CA: No Polycystic Ovaries: No Therapeutic (s) & number: No Tubal Ligation: No - Immunization History Immunization Up to Date: Yes - Suicide/Smoking/Psychosocial Hx Smoking Status: No Smoking History: Never smoked Have you smoked in the past 12 months: No Number of Cigarettes Smoked Daily: 0 Cigars Per Day: 0 Hx Alcohol Use: No Drug/Substance Use Hx: No Substance Use Type: None Hx Substance Use Treatment: No Review of Systems - Review of Systems Comments:: 01/10/19 23:03 GENERAL/CONSTITUTIONAL: +fever +chills. No weakness. HEAD, EYES, EARS, NOSE AND THROAT: No change in vision. No sore throat. CARDIOVASCULAR: No chest pain or shortness of breath RESPIRATORY: No cough, wheezing, or hemoptysis. GASTROINTESTINAL: +nausea, no vomiting, +diarrhea no constipation. GENITOURINARY: No dysuria, frequency, or change in urination. MUSCULOSKELETAL: No joint or muscle swelling or pain. No neck or back pain. SKIN: No rash NEUROLOGIC: No headache, vertigo, loss of consciousness, or change in strength/ sensation. ENDOCRINE: No increased thirst. No abnormal weight change HEMATOLOGIC/LYMPHATIC: No anemia, easy bleeding, or history of blood clots. ALLERGIC/IMMUNOLOGIC: No hives or skin allergy. *Physical Exam - Vital Signs Last Vital Signs Temp Pulse Resp BP Pulse Ox 99.7 F H 119 H 20 110/70 98 01/10/19 20:26 01/10/19 20:26 01/10/19 20:26 01/10/19 20:26 01/10/19 20:26 - Physical Exam Comments: 01/10/19 23:04 GENERAL: Awake, alert, and fully oriented, in no acute distress HEAD: No signs of trauma, normocephalic, atraumatic EYES: PERRLA, EOMI, sclera anicteric, conjunctiva clear ENT: Auricles normal inspection, hearing grossly normal, nares patent, oropharynx clear without exudates. Moist mucosa NECK: Normal ROM, supple, no lymphadenopathy, JVD, or masses LUNGS: No distress, speaks full sentences, clear to auscultation bilaterally HEART: Regular rate and rhythm, normal S1 and S2, no murmurs, rubs or gallops, peripheral pulses normal and equal bilaterally. ABDOMEN: Soft, periumbilical tenderness, normoactive bowel sounds. Well appearing c-sectin scar with small defect on left lateral side. No guarding, no rebound. No masses EXTREMITIES: Normal inspection, Normal range of motion, no edema. No clubbing or cyanosis. NEUROLOGICAL: Cranial nerves II through XII grossly intact. Normal speech, normal gait, no focal sensorimotor deficits SKIN: Warm, Dry, normal turgor, no rashes or lesions noted. Moderate Sedation - Procedure Monitoring Vital Signs: Procedure Monitoring Vital Signs Temperature 99.7 F H 01/10/19 20: Pulse Rate 119 H 01/10/19 20: Respiratory Rate 01/10/19 20: Blood Pressure 110/70 01/10/19 20:26 O2 Sat by Pulse Oximetry (%) 98 01/10/19 20:26 ED Treatment Course - LABORATORY CBC & Chemistry Diagram: 01/10/19 22:48 01/10/19 20:28 - RADIOLOGY Radiology Studies Ordered: Category Date Time Status ABDOMEN & PELVIS CT W/O CONTR [CT] Stat CT Scan 01/10/19 22:17 Ordered - Medications Given in the ED: ED Medications Discontinued Medications Generic Name Dose Route Start Last Admin Trade Name Freq PRN Reason Stop Dose Admin Morphine Sulfate 4 mg 01/10/19 22:16 01/10/19 22:40 Morphine Injection - IVPUSH 01/10/19 22:17 Not Given ONCE ONE Medical Decision Making - Medical Decision Making 01/10/19 23:05 Patient is 28F here today with abdominal pain, 1 month from . Flu exposure. Febrile (refused rectal temp), tachycardic. Will workup with abdominal labs. Will do dry CT given anaphylactic contrast dye. POCUS demonstrates normal appearing gallbladder. DDx includes, but is not limited to: flu, colitis, abscess, uti. *DC/Admit/Observation/Transfer Diagnosis at time of Disposition: Abdominal pain - Discharge Dispostion Condition at time of disposition: Stable - Referrals Referrals: Dragan Saavedra MD [Primary Care Provider] - - Patient Instructions - Post Discharge Activity
[2019-01-10 23:31] LABS: ALBUMIN 4.4 g/dl (3.4-5.0); ALK PHOS 156 U/L (45-117); ANION GAP 7 MMOL/L (8-16); BILIRUBIN,TOTAL 0.4 mg/dL (0.2-1); BLOOD UREA NITROGEN 12 mg/dL (7-18); CALCIUM 8.9 mg/dL (8.5-10.1); CHLORIDE 107 mmol/L (98-107); CO2 22 mmol/L (21-32); CREATININE 0.8 mg/dL (0.55-1.3); GLUCOSE,RANDOM 88 mg/dL (74-106); POTASSIUM 3.9 mmol/L (3.5-5.1); SGOT/AST 129 U/L (15-37); SGPT/ALT 242 U/L (13-61); SODIUM 137 mmol/L (136-145)
[2019-01-10 23:51] LABS: URINE APPEARANCE CLEAR; URINE BILIRUBIN NEGATIVE (<2.0 mg/dL); URINE COLOR YELLOW; URINE GLUCOSE (UA) NEGATIVE (NEGATIVE); URINE KETONE NEGATIVE (NEGATIVE); URINE LEUK ESTERASE TRACE (NEGATIVE); URINE NITRITE NEGATIVE (NEGATIVE); URINE PROTEIN NEGATIVE (NEGATIVE); URINE UROBILINOGEN NEGATIVE mg/dL (0.2-1.0)
[2019-01-11 00:08] LABS: EPI CELLS RARE /HPF (FEW); URINE BACTERIA RARE /hpf (NONE SEEN); URINE MUCUS RARE
--- NOTE | 2019-01-11 01:50 | PDOC ---
*Physical Exam - Vital Signs Last Vital Signs Temp Pulse Resp BP Pulse Ox 99.7 F H 119 H 20 110/70 98 01/10/19 20:26 01/10/19 20:26 01/10/19 20:26 01/10/19 20:26 01/10/19 20:26 ED Treatment Course - LABORATORY CBC & Chemistry Diagram: 01/10/19 22:48 01/10/19 20:28 - ADDITIONAL ORDERS Additional order review: Laboratory Results 01/10/19 01/10/19 01/10/19 23:09 22:48 22:48 Sodium Potassium Chloride Carbon Dioxide Anion Gap BUN Creatinine Creat Clearance w eGFR Random Glucose Calcium Total Bilirubin AST ALT Alkaline Phosphatase Total Protein Albumin Lipase 247 Serum , Qual Negative Urine Color Yellow Urine Appearance Clear Urine pH 5.0 Ur Specific [place] 1.021 Urine Protein Negative Urine Glucose (UA) Negative Urine Ketones Negative Urine Blood Negative Urine Nitrite Negative Urine Bilirubin Negative Urine Urobilinogen Negative Ur Leukocyte Esterase Trace Urine WBC (Auto) 4 Urine RBC (Auto) <1 Ur Epithelial Cells Rare Urine Bacteria Rare Urine Mucus Rare 01/10/19 20:28 Sodium 137 Potassium 3.9 Chloride 107 Carbon Dioxide 22 Anion Gap 7 L BUN 12 Creatinine 0.8 Creat Clearance w eGFR > 60 Random Glucose 88 Calcium 8.9 Total Bilirubin 0.4 AST 129 H ALT 242 H Alkaline Phosphatase 156 H Total Protein 9.0 H Albumin 4.4 Lipase Serum , Qual Urine Color Urine Appearance Urine pH Ur Specific [place] Urine Protein Urine Glucose (UA) Urine Ketones Urine Blood Urine Nitrite Urine Bilirubin Urine Urobilinogen Ur Leukocyte Esterase Urine WBC (Auto) Urine RBC (Auto) Ur Epithelial Cells Urine Bacteria Urine Mucus 01/10/19 22:48 RBC 4.35 MCV 93.0 MCHC 34.7 RDW 13.7 MPV 7.8 Neutrophils % 76.7 Lymphocytes % 14.7 D Monocytes % 7.4 Eosinophils % 0.8 Basophils % 0.4 - Medications Given in the ED: ED Medications Discontinued Medications Generic Name Dose Route Start Last Admin Trade Name Freq PRN Reason Stop Dose Admin Acetaminophen 1,000 mg 01/10/19 22:18 01/10/19 23:01 Ofirmev Injection - IVPB 01/10/19 22:19 1,000 mg ONCE ONE Administration Sodium Chloride 1,000 mls @ 1,000 mls/hr 01/10/19 20:29 01/10/19 22:58 Normal Saline - IV 01/10/19 21:28 1,000 mls/hr ASDIR STA Administration Sodium Chloride 1,000 mls @ 1,000 mls/hr 01/10/19 22:16 01/10/19 23:13 Normal Saline - IV 01/10/19 23:15 1,000 mls/hr ASDIR STA Administration Morphine Sulfate 4 mg 01/10/19 22:16 01/10/19 22:40 Morphine Injection - IVPUSH 01/10/19 22:17 Not Given ONCE ONE Medical Decision Making - Medical Decision Making Although the patient has increased LFTs there are no concerning findings on her abdominal CT. Will C home with PCP follow up. 01/11/19 01:46 *DC/Admit/Observation/Transfer Diagnosis at time of Disposition: Abdominal pain Qualifiers: Abdominal location: generalized Qualified Code(s): R10.84 - Generalized abdominal pain - Discharge Dispostion Disposition: HOME Condition at time of disposition: Improved Decision to Admit order: No - Referrals Referrals: Dragan Saavedra MD [Primary Care Provider] - - Patient Instructions Printed Discharge Instructions: DI for Abdominal Pain-Adult Additional Instructions: Please drink plenty of fluid. Please follow up with your PCP to have your liver labs followed. You likely have a viral infection of your stomach that will get better in a few days. Please return to the ED if you have new or worsening symptoms. - Post Discharge Activity
[2019-01-11 02:10] VITALS: BP 122/78; PULSE 71; TEMP 97.9
== END 2019-01-11 02:16 | disposition home or self-care (01) ==
LOC: JER 19:35
PROC: 3E033NZ Introduction of Analgesics, Hypnotics, Sedatives into Peripheral Vein, Percutaneous Approach (ICD-10-PCS; principal; 2019-01-10)
PROC: 3E0337Z Introduction of Electrolytic and Water Balance Substance into Peripheral Vein, Percutaneous Approach (ICD-10-PCS; 2019-01-10)
DX: O90.89 Other complications of the puerperium, not elsewhere classified (principal); O99.63 Diseases of the digestive system complicating the puerperium; K52.9 Noninfective gastroenteritis and colitis, unspecified; O90.0 Disruption of cesarean delivery wound
CPT/HCPCS: 36415; 74176-TC; 76705-TC; 80053; 81003; 81015; 83690; 84703; 85025; 87086; 87186; 87804; 96361; 96374; 99282-25; J0131; J7030

== ENCOUNTER 2019-05-09 08:10 | Day surgery (SDC) | payer OTHER ==
[2019-05-06 10:37] VITALS: BMI 29.4
[2019-05-09 08:37] LABS: BASO % 0.7 % (0-2.0); HEMATOCRIT 37.2 % (32.4-45.2); HEMOGLOBIN 12.8 GM/dL (10.7-15.3); LYMPH % 39.7 % (8-40); MCH 32.2 pg (25.7-33.7); MCHC 34.4 g/dl (32.0-36.0); MEAN CELL VOLUME 93.6 fl (80-96); MEAN PLT VOLUME 7.8 fl (7.5-11.1); MONO % 8.3 % (3.8-10.2); NEUT % 48.3 % (42.8-82.8); PLATELET COUNT 347 K/MM3 (134-434); RBC 3.98 M/mm3 (3.60-5.2); RDW 12.4 % (11.6-15.6); WHITE BLOOD COUNT 7.1 K/mm3 (4.0-10.0)
[2019-05-09 08:45] LABS: INR 0.97 (0.83-1.09); PROTHROMBIN TIME (PATIENT) 11.5 SEC (9.7-13.0)
[2019-05-09 11:26] VITALS: TEMP 98.1
[2019-05-09] MEDS ORDERED: ACETAMINOPHEN 325 MG TABLET (FP) ONE (12:52)
[2019-05-09] MEDS ORDERED: ACETAMINOPHEN 325 MG TABLET (FP) PO ONE (12:57)
[2019-05-09 14:11] VITALS: BP 101/65; PULSE 79
--- NOTE | 2019-05-16 18:00 | PATH ---
Surgical Pathology Report Patient Name: PARAG MAN [facility]. Rec. #: [id number] /Age/Gender: 1990 (Age: 28) / F Account: [id number] Location: RADIOLOGY INTER Taken: 05/09/2019 Received: 05/09/2019 Reported: 05/16/2019 Physicians: Yoel Avila M.D. Specimen(s) Received LIVER BIOPSY Clinical History 28-year-old female with abnormal LFTs Final Diagnosis LIVER, CORE BIOPSY: MILD STEATOHEPATITIS WITH PATCHY STEATOSIS (10-15%) AND FOCAL BALLOONING DEGENERATION OF HEPATOCYTES AND PERICELLULAR INFLAMMATION, SEE COMMENT. TRICHROME STAIN SHOWS PATCHY PERIVENULAR AND PERICELLULAR FIBROSIS. RETICULIN STAIN SHOWS AN INTACT SINUSOIDAL ARCHITECTURE. IRON STAIN IS NEGATIVE FOR SIDEROSIS. NEGATIVE FOR CHRONIC HEPATITIS, CHOLESTATSIS, CHOLANGITIS/BILE DUCT INJURY, GRANULOMAS, OR MALIGNANCY. Comment: Steatohepatitis may be associated with diabetes mellitus, metabolic syndromes, obesity, medications, alcohol use, etc. Clinical correlation recommended. The total RENE Score is 3/8 (steatosis: 1/3, lobular inflammation: 1/3, hepatocyte ballooning: ). The RENE fibrosis stage is 1B. Case sent for consultation to Dr. Rolanda Navarro from [place], [place], the diagnosis above reflects her opinion ([id number]). Electronically Signed Elyse Saldaña M.D. Gross Description Received in formalin labeled "liver tissue," are 3 kan, cylindrical portions of soft tissue ranging from 0.3-1.5 cm in length and averaging 0.1 cm in diameter. The specimens are submitted in toto in one cassette. /05/09/2019 [facility]05/09/2019
== END 2019-05-09 14:36 | disposition home or self-care (01) ==
LOC: JRADIR 08:10
PROVIDERS: ATTEND Internal Medicine Gastroenterology
PROC: 0FB03ZX Excision of Liver, Percutaneous Approach, Diagnostic (ICD-10-PCS; principal; 2019-05-09)
DX: R94.5 Abnormal results of liver function studies (principal)
CPT/HCPCS: 36415; 76942-TC; 84703; 85025; 85610; 87899; 88307-TC